=== PATIENT | male | born 1965 | race Asian ===

== ENCOUNTER 2019-02-02 09:04 | Emergency (ER) | payer SELFPAY ==
[~2019-02-02] VITALS: Ht 165.1 cm; Wt 66.8 kg
[~2019-02-02 09:04] MED LIST: NOCURR
[2019-02-02] MEDS ORDERED: COLC0.6T73 PO (09:38)
[2019-02-02] MEDS ORDERED: NAPR-1025 PO (09:38)
[2019-02-02 10:49] LABS: BASOPHILS % (AUTO) 0.7 % (0.0-2.0); EOSINOPHILS % (AUTO) 3.5 % (1.0-6.0); HEMATOCRIT 45.9 % (41-53); HEMOGLOBIN 15.5 g/dL (13.5-17.5); LYMPHOCYTES # (AUTO) 1.5 K/uL (1.0-4.8); LYMPHOCYTES % (AUTO) 17.4 % (22.0-44.0); MEAN CORPUSCULAR HEMOGLOBIN 30.2 pg (26.0-34.0); MEAN CORPUSCULAR HGB CONC 33.8 G/dL (31.0-37.0); MEAN CORPUSCULAR VOLUME 89 fL (80-100); MONOCYTES # (AUTO) 0.4 K/uL (0.1-1.0); MONOCYTES % (AUTO) 4.6 % (2.0-9.0); NEUTROPHILS # (AUTO) 6.3 K/uL (1.8-7.7); NEUTROPHILS % (AUTO) 73.8 % (40.0-70.0); PLATELET COUNT (AUTO) 181 K/uL (150-450); RED BLOOD CELL COUNT(AUTO) 5.14 MIL/uL (4.50-5.90)
[2019-02-02 10:53] LABS: ANION GAP 8 mmol/L (8-16); CALCIUM, TOTAL 9.9 mg/dL (8.8-10.5); CARBON DIOXIDE 32 mmol/L (22-29); CHLORIDE 102 mmol/L (98-107); GLOMERULAR FILTR. RATE CALC > 60 mL/min (>60); GLUCOSE,RANDOM 96 mg/dL (70-110); POTASSIUM 4.6 mmol/L (3.5-5.1); SODIUM SERUM 142 mmol/L (136-145); UREA NITROGEN, BLOOD 20 mg/dL (7-18)
[2019-02-02 11:14] LABS: B-TYPE NATRIURETIC PEPTIDE < 5 pg/mL (0-100)
[2019-02-02 11:18] LABS: ALANINE AMINOTRANSFERASE 33 U/L (12-78); ALBUMIN 3.5 g/dL (3.4-5.0); ALKALINE PHOSPHATASE 107 U/L (46-116); ASPARTATE AMINOTRANSFERASE 21 U/L (15-37); BILIRUBIN,TOTAL 0.5 mg/dL (0.1-1.0); CREATINE KINASE, TOTAL ONLY 208 U/L (39-308); TOTAL PROTEIN, SERUM 8.2 g/dL (6.4-8.2)
[2019-02-02 15:50] VITALS: BP 118/76
== END 2019-02-02 15:52 | disposition home or self-care (01) ==
LOC: EMS 09:06
DX: R42 Dizziness and giddiness (principal); R55 Syncope and collapse; M10.9 Gout, unspecified; Z79.899 Other long term (current) drug therapy
CPT/HCPCS: 93005; 99291

== ENCOUNTER 2022-04-08 01:07 | Emergency (ER) | payer BC, MEDICAID ==
[~2022-04-08] VITALS: Ht 165.1 cm; Wt 72.7 kg
[~2022-04-08 01:07] MED LIST changes: +COLC0.6T73 PO; +NAPR-1025 PO; -NOCURR
[2022-04-08] MEDS ORDERED: ONDANSETRON HCL 4 MG/2 ML VIAL IM ONE (01:30)
[2022-04-08] MEDS ORDERED: MORPHINE SULFATE 4 MG/ML SYRINGE IM ONE (01:30)
[2022-04-08] MEDS ORDERED: TRAM-559 PO (01:38)
[2022-04-08] MEDS ORDERED: KETOROLAC TROMETHAMINE 60 MG/2 ML VIAL IM ONE (02:45)
[2022-04-08] MEDS ORDERED: PredniSONE 20 MG TABLET PO ONE (04:15)
[2022-04-08 04:18] LABS: COVID AG,FIA SOURCE NASAL SWAB
[2022-04-08] MEDS ORDERED: IPRATROPIUM BROMIDE 0.5 MG/2.5 ML NEB SOLUTION NEB ONE (04:30)
[2022-04-08] MEDS ORDERED: ALBUTEROL SULFATE 2.5 MG/0.5 ML NEB SOLUTION NEB ONE (04:30)
[2022-04-08 04:42] LABS: INFLUENZA TYPE A NEGATIVE FOR TYPE A (NEGATIVE); INFLUENZA TYPE B NEGATIVE FOR TYPE B (NEGATIVE)
[2022-04-08] MEDS ORDERED: AZIT250T9 PO (04:53)
[2022-04-08 05:00] VITALS: BP 115/65
[2022-04-08] MEDS ORDERED: AZITHROMYCIN 500 MG TABLET PO ONE (05:00)
== END 2022-04-08 05:04 | disposition left against medical advice (07) ==
LOC: EMS 01:08
DX: M10.9 Gout, unspecified (principal); J18.9 Pneumonia, unspecified organism; Z20.822 Contact with and (suspected) exposure to COVID-19
CPT/HCPCS: 99285; 94060; 71045; 87426; 87804; 94640; 96372; J1885; J2270; J2405; J7512; Q9967; J7613